=== PATIENT | male | born 1955 | race Caucasian/White ===

== ENCOUNTER 2018-12-08 06:46 | Day surgery (SDC) | payer BC ==
[~2018-12-08 06:46] MED LIST: Lactated Ringers 1,000 ML IV SCH
[2018-12-08] MEDS ORDERED: Propofol 200 MG/20 ML SDV IV ONE (06:47)
[2018-12-08] MEDS ORDERED: Midazolam 1 MG/ML 2 ML SDV IV ONE (06:47)
--- NOTE | 2018-12-08 08:49 | PCM.HP ---
H&P History of Present Illness - General Date of Service: 12/08/18 Admit Problem/Dx: Admission Diagnosis/Problem Admission Diagnosis/Problem Colonoscopy Source of Information: Patient, Old Records History Limitations: Reports: No Limitations - History of Present Illness Initial Comments - Free Text/Narative: Here for colonoscopy for hx of polyps - Related Data Allergies/Adverse Reactions: Allergies Allergy/AdvReac Type Severity Reaction Status Date / Time No Known Allergies Allergy Verified 12/08/18 07:15 Home Medications: Home Meds Simvastatin [Zocor] 20 mg PO BEDTIME 11/13/15 [History] amLODIPine [Norvasc] 5 mg PO DAILY 11/13/15 [History] Aspirin 81 mg PO DAILY 11/14/15 [History] Colchicine 3 tab PO ASDIRECTED 12/07/18 [History] Past Medical History - Past Health History Medical/Surgical History: Denies Medical/Surgical History Cardiovascular History: Reports: High Cholesterol, Hypertension Gastrointestinal History: Reports: Colon Polyp Musculoskeletal History: Reports: Arthritis, Gout - Infectious Disease History Infectious Disease History: Reports: Chicken Pox, Measles, Mumps - Past Surgical History GI Surgical History: Reports: Appendectomy, Colonoscopy Social & Family History - Family History Oncologic: Reports: Colon (in Father) - Tobacco Use Smoking Status *Q: Light Tobacco Smoker - Caffeine Use Caffeine Use: Reports: Coffee, Soda - Recreational Drug Use Recreational Drug Use: No Drug Use in Last 12 Months: No H&P Review of Systems - Review of Systems: Review Of Systems: See Below General: Reports: No Symptoms Pulmonary: Reports: No Symptoms Cardiovascular: Reports: No Symptoms Gastrointestinal: Reports: No Symptoms Exam - Exam Exam: See Below - Vital Signs Vital Signs: Last Vital Signs Temp 208.4 F H 12/08/18 08:39 Pulse 65 12/08/18 08:39 Resp 12 12/08/18 08:39 BP 122/53 L 12/08/18 08:39 Pulse Ox 98 12/08/18 08:39 Weight: 102.965 kg - Exam General: Alert, Oriented Lungs: Clear to Auscultation, Normal Respiratory Effort Cardiovascular: Regular Rate, Regular Rhythm GI/Abdominal Exam: Soft, Non-Tender Problem List Initiated/Reviewed/Updated: Yes Orders Last 24hrs: Active Orders 24 hr Category Date Time Status Patient Status [ADT] Routine ADT 12/08/18 06:45 Ordered Enema [RC] ONETIME Care 12/08/18 07:10 Active Patient to Empty Bladder [RC] ASDIRECTED Care 12/08/18 06:45 Active Verify Patient Consent Obtain [RC] ASDIRECTED Care 12/08/18 06:45 Active Nothing Per Oral Diet [DIET] Diet 12/07/18 Dinner Ordered Lactated Ringers [Ringers, Lactated] 1,000 ml Med 12/08/18 06:45 Active IV ASDIRECTED Peripheral IV Insertion Adult [OM.PC] Routine Oth 12/08/18 06:45 Ordered Resuscitation Status Routine Resus Stat 12/07/18 13:15 Ordered Medication Orders Lactated Ringer's (Ringers, Lactated) 1,000 mls @ 125 mls/hr IV ASDIRECTED [facility] Last Admin: 12/08/18 07:43 Dose: 125 mls/hr Assessment/Plan Comment:: Hx Colon polyps ok to proceed with colonoscopy
--- NOTE | 2018-12-08 08:50 | PCM.OPNOTE ---
- General Post-Op/Procedure Note Date of Surgery/Procedure: 12/08/18 Operative Procedure(s): Colonoscopy with polypectomy Findings: 2 small polyps Sig tics Pre Op Diagnosis: Hx Colon Polyps Post-Op Diagnosis: Same Anesthesia Technique: MAC Primary Surgeon: Farzad Dupree Anesthesia Provider: Kaylee Oswald EBL in mLs: 0 Complications: None Condition: Good
[2018-12-08 09:36] VITALS: BP 146/83
--- NOTE | 2018-12-08 13:56 | OR ---
DATE OF OPERATION: 12/08/2018 SURGEON: Farzad Dupree MD PREOPERATIVE DIAGNOSES: 1. History of colon polyps. 2. Sigmoid diverticulosis. POSTOPERATIVE DIAGNOSES: 1. Colon polyps. 2. Sigmoid diverticulosis. PROCEDURE PERFORMED: Colonoscopy with polypectomy. ANESTHESIA: IV sedation. DESCRIPTION OF PROCEDURE: The patient was brought to the procedure room, where he was placed on his left side and IV sedation administered. Digital rectal exam was performed, which was normal. The colonoscope was inserted and advanced to the level of the cecum without difficulty. Cecal position was confirmed by identifying the appendiceal lumen and ileocecal valve. Prep was good and surfaces were well visualized. Upon withdrawing the scope, the ascending, transverse, and descending colons were normal in appearance. The sigmoid colon had multiple large diverticula present. There was a small 6-mm sessile polyp located 20 cm from the anal verge, that was removed with the hot biopsy forceps. In the rectum, there was a 5-mm sessile polyp located 10 cm from the anal verge that was also removed with the hot biopsy forceps. Retroflexion was normal. Air was removed, and the scope withdrawn. The patient tolerated the procedure well and returned to recovery in a stable condition. The patient will be contacted with the pathology report when it returns. Even if these polyps are adenomatous, they are so small that I feel he could wait 5 years until his next colon screening. /[id number] HAYLIE/ESSENCE
== END 2018-12-08 10:01 | disposition home or self-care (01) ==
LOC: FB.SDS 06:46
PROVIDERS: ATTEND Surgery
DX: Z12.11 Encounter for screening for malignant neoplasm of colon (principal); K63.5 Polyp of colon; K62.1 Rectal polyp; K57.30 Diverticulosis of large intestine without perforation or abscess without bleeding; I10 Essential (primary) hypertension; E78.00 Pure hypercholesterolemia, unspecified; F17.290 Nicotine dependence, other tobacco product, uncomplicated; Z79.82 Long term (current) use of aspirin; Z79.899 Other long term (current) drug therapy
CPT/HCPCS: 45384; 88305; J2250; J2704; J7120